=== PATIENT | female | born 1995 | race Caucasian/White ===

== ENCOUNTER 2018-02-18 13:39 | Emergency (ER) | payer SELFPAY ==
[~2018-02-18] VITALS: Ht 154.9 cm; Wt 45.5 kg
[2018-02-18] MEDS ORDERED: BIRTH CONTROL PO (13:44)
[2018-02-18] MEDS ORDERED: IBUPROFEN 400 MG TABLET PO ONE (15:15)
[2018-02-18] MEDS ORDERED: ONDANSETRON HCL 4 MG TABLET PO ONE (15:15)
[2018-02-18 15:43] VITALS: BP 110/77
== END 2018-02-18 13:55 | disposition home or self-care (01) ==
LOC: EMS 13:40
DX: S06.0X0A Concussion without loss of consciousness, initial encounter (principal); F10.129 Alcohol abuse with intoxication, unspecified; Y90.9 Presence of alcohol in blood, level not specified; W01.0XXA Fall on same level from slipping, tripping and stumbling without subsequent striking against object, initial encounter; Y93.89 Activity, other specified; Y92.89 Other specified places as the place of occurrence of the external cause; Y99.8 Other external cause status
CPT/HCPCS: 70450; 81025; 99284; Q0162